=== PATIENT | male | born 1955 | race Caucasian/White ===

== ENCOUNTER 2022-03-17 06:28 | Day surgery (SDC) | payer OTHER ==
[~2022-03-17] VITALS: Ht 185.4 cm; Wt 81.8 kg
[~2022-03-17 06:28] MED LIST: ASPIR-TRIN325 MG PO; CHLORTHALIDONE25 MG PO; DAILY VALUE1 EACH PO; LANTUS SOL100 UNIT/1 SUB-Q; LIPITOR20 MG PO; LISINOPRIL20 MG PO; METFORMIN HCL500 MG PO; NYSTATIN15 GM; VITAMIN D350 MC3 PO
--- NOTE | 2022-03-17 08:06 | NUR ---
03/17/22 0806 Tessa Ruiz 0800-PATIENT ARRIVED TO PACU ON 2L NC RR EVEN. PATIENT LAYING LEFT LATERAL HAS WASHCLOTH ON FOREHEAD. PATIENT AROUSES TO VERBAL STIMULI DENIES PAIN OR NAUSEA. ENCOURAGED TO PASS GAS. ABDOMEN SOFT. IVF INFUSING. WILL HANG 2ND BAG.
--- NOTE | 2022-03-17 09:01 | NUR ---
PT WAS BEING TAKEN FOR SCOPE, SHANIA MORTENSEN REQUESTED I CONNECT WITH PTS' WHO SEEMED TO BE STRUGGLING. VIET WAS IN PTS' RM, SOMEWHAT EMOTIONAL. SHE CONFIDED IN ME THAT THIS IS PTS' FIRST TIME EVER IN HOSP FOR ANY TYPE OF PROCEDURE. SHE SAID HE WAS FINE BUT "I'M A WRECK". SHE SHARED SHE STRUGGLES WITH ANESTHESIA, TROUBLE WITH NAUSEA AND ANXIETY JUST TOOK OVER. GAVE COMFORT SUPPORT AND HAD PRAYER WITH HER. SUPPLIED A PAGER, ENCOURAGED HER TO GET SOME FRESH AIR AND WAIT IN LOBBY. SHE THANKED ME, WILL FOLLOW
--- NOTE | 2022-03-17 09:44 | OR ---
[facility] [address] [place], [place] [address] Signed DATE OF OPERATION: 03/17/2022 SURGEON: Nunu Ocampo MD PREOPERATIVE DIAGNOSIS: Screening. POSTOPERATIVE DIAGNOSES: 1. Minimal sigmoid diverticulosis. 2. Long redundant colon. PROCEDURE: Colonoscopy without biopsy. ESTIMATED BLOOD LOSS: None. INDICATIONS: Gregg is a 66-year-old gentleman asked to see me for his initial screening colonoscopy. He has no lower GI complaints. There is no family history of colon cancer or polyps. 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 He lost his strength and muscle mass from the waist down. He lost a significant amount of weight. He has slowly regained his strength and has regained over 30 pounds. He was actually able to walk into the hospital today without a cane or a walker. He also had a negative CT scan of abdomen and pelvis back in October of 2020. As always, he comes with his . In the office, I gave him a pamphlet on colonoscopy. We had reviewed that together. They understand the nature of that test. There is risk including, but not limited to gas bloating, crampy abdominal pain, bleeding, perforation requiring surgery, and missed diagnosis. We also discussed the need for IV conscious sedation. He had expressed understanding and wished to proceed. PROCEDURE NOTE: Gregg was taken into the endoscopy suite and placed in the left lateral decubitus position. He was extremely anxious and his systolic blood pressure was in the 160s, heart rate was in the 120s. We noticed in the office his blood pressure was in the 160s as well and also the heart rate was in the 130s. He said it has been a rough year. In total, he required 12 mg of Versed and 200 mcg of fentanyl to cover the case. It did bring his heart rate down near 100 and his blood pressure dropped all the way down into the 80s. However, when we were done, he within a minute or two before we even with the room, he was awake and talking to us and raising his head off the pillow. We had done a Electronically Signed By: NUNU OCAMPO MD 03/17/22 0944 PATIENT NAME: GREGG RODRIGUEZ OPERATIVE REPORT DATE OF : 59 REPORT #: [id number] PHYSICIAN: NUNU OCAMPO MD PCP: AUSTEN PEACOCK MD REPORT IS CONFIDENTIAL AND NOT TO BE RELEASED WITHOUT AUTHORIZATION [facility] [address], [place] [address] Signed digital rectal exam and he has no external hemorrhoids. He has good sphincter tone. There are no masses. His prostate is not overly enlarged, but it is indurated and a little more prominent on the left than on the right. The adult colonoscope had been introduced and advanced under direct visualization of the camera. We found that he has a long redundant tortuous colon, particularly the left colon. That required extra sedation. It was quite difficult and in the future he would be much better persevered and much safer to have monitored anesthesia care with propofol. We eventually made our way around into the cecum itself with the addition of large amounts of fentanyl and Versed. We also used some abdominal compression. Thankfully his prep was quite excellent. We could easily see the appendiceal orifice and the ileocecal valve. The scope was then slowly withdrawn. We took pictures throughout for photodocumentation. He does have a few diverticula in the sigmoid colon. They are minimal to moderate in size, few in number, and scattered about. The scope had been retroflexed in his rectum and we did not see any additional pathology above the anal canal. After this, the gas was suctioned out and the colonoscope removed. Overall, Gregg did well with his colonoscopy. RECOMMENDATIONS: Gregg can return in 10 years for repeat colonoscopy. He really should use monitored anesthesia care with propofol in the future as described above. He also has a small 4 mm nonhealing skin lesion just lateral to his right eye. He said he picks at it frequently. He needs to review that with his primary care provider or he is welcome to come by my office and we can excise that for him. I did mention that to him. Nunu Ocampo MD ALB/MODL /[id number] cc: MD Austen Munguia MD Copies: NUNU OCAMPO MD Electronically Signed By: NUNU OCAMPO MD 03/17/22 0944 PATIENT NAME: GREGG RODRIGUEZ OPERATIVE REPORT DATE OF : 59 REPORT #: [id number] PHYSICIAN: NUNU OCAMPO MD PCP: AUSTEN PEACOCK MD REPORT IS CONFIDENTIAL AND NOT TO BE RELEASED WITHOUT AUTHORIZATION [address] [address] Signed AUSTEN PEACOCK DMD ~ Electronically Signed By: NUNU OCAMPO MD 03/17/22 0944 PATIENT NAME: GREGG RODRIGUEZ OPERATIVE REPORT DATE OF : 59 REPORT #: [id number] PHYSICIAN: NUNU OCAMPO MD PCP: AUSTEN PEACOCK MD REPORT IS CONFIDENTIAL AND NOT TO BE RELEASED WITHOUT AUTHORIZATION
== END 2022-03-17 09:10 | disposition home or self-care (01) ==
LOC: DS 06:28 → OPS 06:28 → DS 07:30 → OPS 07:30
PROVIDERS: ATTEND Colon & Rectal Surgery
PROC: 0DJD8ZZ Inspection of Lower Intestinal Tract, Via Natural or Artificial Opening Endoscopic (ICD-10-PCS; principal; 2022-03-17 07:30)
DX: Z12.11 Encounter for screening for malignant neoplasm of colon (principal); E11.9 Type 2 diabetes mellitus without complications; R26.1 Paralytic gait; I10 Essential (primary) hypertension; Z79.84 Long term (current) use of oral hypoglycemic drugs; K57.30 Diverticulosis of large intestine without perforation or abscess without bleeding; K63.89 Other specified diseases of intestine
CPT/HCPCS: 99153; G0500; J2250; J3010; J7121

== ENCOUNTER 2022-07-24 15:15 | Emergency (ER) | payer MEDICARE, OTHER ==
[~2022-07-24] VITALS: Ht 185.4 cm; Wt 87.8 kg
== END 2022-07-24 16:30 | disposition short-term general hospital (02) ==
LOC: ED 15:15
DX: I21.3 ST elevation (STEMI) myocardial infarction of unspecified site (principal); I46.9 Cardiac arrest, cause unspecified; E11.9 Type 2 diabetes mellitus without complications; I10 Essential (primary) hypertension; Z79.4 Long term (current) use of insulin; Z79.82 Long term (current) use of aspirin; Z79.899 Other long term (current) drug therapy
CPT/HCPCS: 31500; 36415; 36600; 71045; 80053; 82803; 83735; 84484; 85025; 85379; 85610; 85730; 87502; 94002; 94799; C9803; J0171; J0461; J1250; J1644; J2250; J3010; J3101; J3475; J7030; U0003

== ENCOUNTER 2023-10-27 09:30 | Emergency (ER) | payer MEDICARE, OTHER ==
[~2023-10-27] VITALS: Ht 185.4 cm; Wt 86.4 kg
[~2023-10-27 09:30] MED LIST changes: +AMIODARONE HCL200 MG PO; +ASPIRIN81 MG PO; +ATORVASTATIN CA80 MG PO; +JARDIANCE10 MG PO; +JARDIANCE25 MG PO; +LOSARTAN POTASS50 MG PO; +METOPROLOL SUCC25 MG PO; +PANTOPRAZOLE SO40 MG PO; +TAMSULOSIN HCL0.4 MG PO; +WARFARIN SODIUM2 MG PO
[2023-10-27 10:18] LABS: BASOPHILS 0.6 % (0-2); RDW 19.2 (10.5-15.0)
[2023-10-27 10:20] LABS: EOSINOPHILS 1.4 % (0-6); HEMATOCRIT 33.6 % (35.0-50.0); HEMOGLOBIN 10.8 g/dL (12.0-18.0); MCH 30.2 (27-36); MCHC 32.3 g/dl (30-36); MCV 93.6 fl (81-99); MONOCYTES 6.3 % (0-12); NEUTROPHILS 77.7 % (39-80); PLATELET COUNT 194 K/uL (140-440); RBC 3.59 M/ul (4.3-5.7)
[2023-10-27 10:28] LABS: INR 1.79 (0.80-1.30); PROTIME 20.4 Sec (11.2-14.2)
[2023-10-27 10:40] LABS: ALBUMIN 2.9 g/dL (3.4-5.0); ALBUMIN/GLOBULIN RATIO 0.69 (1.1-2.4); ANION GAP 11.4 (7-21); BILIRUBIN, TOTAL 0.5 ng/dL (0.2-1.0); BUN/CREATININE RATIO 11.59 (6.0-28.6); CALCIUM 8.4 mg/dL (8.5-10.1); CREATININE, SERUM 1.38 mg/dL (0.70-1.30); MAGNESIUM 1.8 mg/dL (1.8-2.4); POTASSIUM 4.4 mmol/L (3.5-5.1); PROTEIN, TOTAL 7.1 g/dL (6.4-8.2)
[2023-10-27] MEDS ORDERED: FUROSEMIDE 40 MG/4 ML VIAL IV ONE (12:00)
[2023-10-27 17:11] VITALS: BP 147/105
--- NOTE | 2023-10-27 22:57 | EKG ---
[facility] [address] [facility] [place] [address] Signed Sinus tachycardia Nonspecific intraventricular block Minimal voltage criteria for LVH, may be normal variant ( Sparkman product ) Cannot rule out Anteroseptal infarct , age undetermined T wave abnormality, consider lateral ischemia Abnormal ECG No previous ECGs available Confirmed by Belinda Reed MD () on 10/27/2023 10:56:53 PM Electronically Signed By: BELINDA REED MD 10/27/23 2257 PATIENT NAME: GREGG RODRIGUEZ Electrocardiogram DATE OF : 59 PHYSICIAN: BELINDA REED MD REPORT #: [id number] REPORT IS CONFIDENTIAL AND NOT TO BE RELEASED WITHOUT AUTHORIZATION
== END 2023-10-27 17:12 | disposition short-term general hospital (02) ==
LOC: ED 09:30
PROVIDERS: Emergency Medicine
DX: I11.0 Hypertensive heart disease with heart failure (principal); I50.9 Heart failure, unspecified; E11.9 Type 2 diabetes mellitus without complications; I25.2 Old myocardial infarction; E78.5 Hyperlipidemia, unspecified; Z95.5 Presence of coronary angioplasty implant and graft; Z95.1 Presence of aortocoronary bypass graft; Z79.84 Long term (current) use of oral hypoglycemic drugs; Z79.82 Long term (current) use of aspirin; Z79.01 Long term (current) use of anticoagulants; Z79.899 Other long term (current) drug therapy
CPT/HCPCS: 36415; 71046; 80053; 83735; 83880; 84484; 85025; 85610; 93005; 93010; 96374; 99285; J1940